=== PATIENT | male | born 1950 | race Caucasian/White ===

== ENCOUNTER → 2018-04-12 | Day surgery (SDC) | payer MEDICARE ==
[2018-04-11 14:07] LABS: BASOPHILS % 0.3 % (0.0-1.0); EOSINOPHILS # (AUTO) 0.5 (0.0-0.4); EOSINOPHILS % 4.7 % (0.0-6.0); HEMATOCRIT 44.5 % (38.2-49.6); HEMOGLOBIN 14.3 g/dL (14.0-18.0); LYMPHOCYTES # (AUTO) 2.7 (1.0-3.2); LYMPHOCYTES % 25.6 % (18.0-39.1); MEAN CORPUSCULAR HEMOGLOBIN 28.5 pg (28-32); MEAN CORPUSCULAR HGB CONC 32.1 g/dL (31-35); MEAN CORPUSCULAR VOLUME 88.6 fL (81-99); MONOCYTES # (AUTO) 0.6 (0.2-0.8); MONOCYTES % 5.9 % (4.4-11.3); NEUTROPHILS # (AUTO) 6.8 (2.1-6.9); NEUTROPHILS % 63.3 % (38.7-80.0); PLATELET COUNT 215 x10e3/uL (140-360); RED BLOOD COUNT 5.02 x10e6/uL (4.3-5.7); RED CELL DISTRIBUTION WIDTH 14.8 % (11.7-14.4)
[2018-04-11 14:15] LABS: ALANINE AMINOTRANSFERASE 16 IU/L (0-55); ALBUMIN 3.7 g/dL (3.5-5.0); ALBUMIN/GLOBULIN RATIO 1.3 (0.8-2.0); ALKALINE PHOSPHATASE 66 IU/L (40-150); ANION GAP 17.7 mmol/L (8-16); BLOOD UREA NITROGEN 16 mg/dL (7-26); BUN/CREATININE RATIO 14 (6-25); CALCIUM 9.6 mg/dL (8.4-10.2); CARBON DIOXIDE 26 mmol/L (22-29); CHLORIDE 106 mmol/L (98-107); CHOL/HDL RATIO 3.1 (3.9-4.7); CHOLESTEROL 152 MD/DL (0-199); CREATININE, SERUM 1.14 mg/dL (0.72-1.25); EST GLOMERULAR FILTRATION RATE > 60 ML/MIN (60-); GLUCOSE 88 mg/dL (74-118); HDL CHOLESTEROL 49 MG/DL (40-60); LDL CHOLESTEROL 56 MG/DL (60-130); POTASSIUM 4.7 mmol/L (3.5-5.1); SODIUM 145 mmol/L (136-145); TRIGLYCERIDES 233 MG/DL (0-149)
[~2018-04-12] VITALS: Ht 170.2 cm; Wt 84.4 kg
[~2018-04-12] MED LIST: ALBUTEROL0.63 MG/3 HHN; ALPRAZOLAM 0.5 MG TAB ONE; AMITIZA24 MCG PO; AMLODIPINE BESY10 MG PO; ASPIRIN 325 MG TAB ONE; ASPIRIN EC81 MG PO; BACLOFEN10 MG PO; COMBIVENT RESPIM4 GM IH; DIPHENHYDRAMINE HCL 25 MG CAP ONE; FENTANYL CITRATE/PF 100MCG/2 ML INJ ONE; GABAPENTIN300 MG PO; HEPARIN SOD (PORCINE) 1000 UNIT/ML 30ML ONE; HEPARIN SOD/SOD CHLORIDE 2,000 ML ONE; IOPAMIDOL 300MG/ML 100 ML INFUS..BTL IV ONE; LIDOCAINE HCL 2% LOCAL 20 ML VIAL ONE; MIDAZOLAM HCL 2 MG/2 ML VIAL ONE; MONTELUKAST SOD10 MG PO; NITROGLYCERIN/D5W 200 MCG/ML 250 ML ONE; NORCO 10-325 T1 EACH PO; PRASUGREL 10 MG TAB ONE; PROTAMINE SULFATE 10 MG/ML 5 ML VIAL ONE; SIMVASTATIN20 MG PO; SODIUM CHLORIDE 0.9% 100 ML 100 ML ONE; SODIUM CHLORIDE 0.9% 1000ML 1,000 ML ONE; TAMSULOSIN HCL0.4 MG PO; VERAPAMIL HCL 2.5 MG/ML 2 ML VIAL ONE
[2018-04-12 11:43] VITALS: BP 138/75
[2018-04-12 14:15] VITALS: BP 104/84
[2018-04-12 14:31] VITALS: BP 115/93
[2018-04-12 14:45] VITALS: BP 95/74
--- NOTE | 2018-04-12 14:55 | Operative Report ---
DATE OF PROCEDURE: April 12, 2018 INDICATION: Claudication. PROCEDURES PERFORMED 1. Abdominal aortogram. 2. Bilateral lower extremity angiograms. 3. Selective placement of catheter from the left femoral artery to the right superficial femoral artery. 4. Additional 3rd-order catheter placement from the left femoral artery to the right posterior tibial artery. 5. Atherectomy, angioplasty and stent placement of the right superficial femoral artery. 6. Secondary thrombectomy of the right superficial femoral artery. 7. Atherectomy and angioplasty of the right posterior tibial artery. 8. Deployment of left groin Perclose. COMPLICATIONS: None. RECOMMENDATIONS: Staged intervention on the left superficial femoral artery focal stenosis. Access was obtained in the left femoral artery. Abdominal aortogram was performed demonstrating no disease in the abdominal aorta and iliacs. However, iliacs were tortuous. The right femoral artery proximally is patent. Distal vessel could not be seen. The catheter was then advanced from the left femoral artery to the right superficial femoral artery confirming 90% stenosis of the mid right superficial femoral artery. The popliteal artery is patent. The infrapopliteal vessels are not well seen. The catheter was advanced from the left femoral artery to the right posterior tibial artery confirming 3-vessel runoff. However, the ostial right posterior tibial artery had 90% stenosis. Left femoral artery had 70% mid-femoral artery stenosis. A decision was made to intervene on the right femoral artery. The patient received 10,000 units of intravenous heparin and oral Effient for anticoagulation. The sheath was exchanged, and the lesion was crossed using a Glidewire. The wire was exchanged to a ViperWire. Orbital atherectomy of the posterior tibial and femoral artery was performed. Femoral artery atherectomy resulted in large amounts of visible thrombus for which manual aspiration and secondary thrombectomy were needed. Balloon angioplasty of the posterior tibial with a 4 x 40 mm Lutonix drug-coated balloon with excellent end result, and drug-coated balloon angioplasty with 6 mm in the femoral artery resulted in flow-limiting dissection. A 7 x 40 mm LifeStent was deployed, post stent with a 6-mm balloon. Excellent end result, less than 10% residual stenosis and 3-vessel runoff to the right foot. Left groin repaired using Perclose. Patient discharged home the same day. Job#: [id number]
[2018-04-12 15:00] VITALS: BP 109/52
[2018-04-12 16:00] VITALS: BP 132/84
== END | disposition home or self-care (01) ==
LOC: CATH LAB 11:16 → EDBD 13:00 → EDSEX 13:00
PROVIDERS: ATTEND Internal Medicine Interventional Cardiology
DX: I70.208 Unspecified atherosclerosis of native arteries of extremities, other extremity (principal); I20.8 Other forms of angina pectoris; J44.9 Chronic obstructive pulmonary disease, unspecified; I10 Essential (primary) hypertension; E78.00 Pure hypercholesterolemia, unspecified; Z01.812 Encounter for preprocedural laboratory examination; Z79.82 Long term (current) use of aspirin; Z82.49 Family history of ischemic heart disease and other diseases of the circulatory system
CPT/HCPCS: 36415; 37186; 37227; 37229; 75625; 80053; 80061; 85025; C1724; C1725 ×3; C1769 ×2; C1876; C1887; J1644; J2001; J2250; J2720; J7030; Q9967; 75716

== ENCOUNTER → 2018-05-15 | Day surgery (SDC) | payer MEDICARE ==
[2018-05-14 12:24] LABS: INR 0.79; PROTHROMBIN TIME 11.7 seconds (11.9-14.5)
[2018-05-14 12:32] LABS: ALBUMIN 3.9 g/dL (3.5-5.0); ALBUMIN/GLOBULIN RATIO 1.6 (0.8-2.0); ANION GAP 14.6 mmol/L (8-16); CALCIUM 9.8 mg/dL (8.4-10.2); CREATININE, SERUM 1.26 mg/dL (0.72-1.25); POTASSIUM 4.6 mmol/L (3.5-5.1)
[2018-05-15] VITALS (14 sets, daily range): BP systolic 90–133; BP diastolic 50–94
[~2018-05-15] VITALS: Ht 170.2 cm; Wt 82.6 kg
[~2018-05-15] MED LIST changes: -ALPRAZOLAM 0.5 MG TAB ONE; -ASPIRIN 325 MG TAB ONE; +CLOPIDOGREL75 MG PO; -DIPHENHYDRAMINE HCL 25 MG CAP ONE; -IOPAMIDOL 300MG/ML 100 ML INFUS..BTL IV ONE; +IOPAMIDOL 370 MG/ML 200 ML INFUS..BTL INJ ONE; +LISINOPRIL10 MG PO; -PRASUGREL 10 MG TAB ONE; -PROTAMINE SULFATE 10 MG/ML 5 ML VIAL ONE; -SODIUM CHLORIDE 0.9% 100 ML 100 ML ONE
--- NOTE | 2018-05-16 20:35 | Operative Report ---
DATE OF PROCEDURE: May 15, 2018 INDICATIONS: Coronary artery disease, abnormal stress test. PROCEDURES PERFORMED 1. Left heart catheterization, selective coronary angiography, left ventriculography. 2. Deployment of right wrist transradial band. COMPLICATIONS: None. RECOMMENDATIONS: Medical therapy. Access was obtained in the right radial artery. A 5-Romansh sheath was placed. Diagnostic coronary angiogram revealed mild coronary artery disease, 10 to 20%. Diffuse luminal irregularities in all coronary vessels. No critical stenosis or occlusions. LV ejection fraction was 60%. LV end-diastolic pressure was 12. No gradient across the aortic valve on pullback. Right wrist TR band applied. Patient discharged home the same day. Job#: [id number]
== END | disposition home or self-care (01) ==
LOC: CATH LAB 06:38
PROVIDERS: ATTEND Internal Medicine Interventional Cardiology
DX: I25.118 Atherosclerotic heart disease of native coronary artery with other forms of angina pectoris (principal); R94.39 Abnormal result of other cardiovascular function study; I73.9 Peripheral vascular disease, unspecified; I10 Essential (primary) hypertension; E78.00 Pure hypercholesterolemia, unspecified; J44.9 Chronic obstructive pulmonary disease, unspecified; Z01.812 Encounter for preprocedural laboratory examination; Z79.82 Long term (current) use of aspirin; Z82.49 Family history of ischemic heart disease and other diseases of the circulatory system
CPT/HCPCS: 36415; 80053; 85610; 93458; C1887; J1644; J2001; J2250; J7030; Q9967

== ENCOUNTER → 2018-06-05 | Day surgery (SDC) | payer MEDICARE ==
[2018-06-04 12:57] LABS: ALBUMIN 3.7 g/dL (3.5-5.0); ALBUMIN/GLOBULIN RATIO 1.4 (0.8-2.0); ANION GAP 13.9 mmol/L (8-16); CALCIUM 9.7 mg/dL (8.4-10.2); CREATININE, SERUM 1.22 mg/dL (0.72-1.25); POTASSIUM 4.9 mmol/L (3.5-5.1)
[2018-06-04 13:05] LABS: INR 0.84; PROTHROMBIN TIME 12.3 seconds (11.9-14.5)
[~2018-06-05] VITALS: Ht 170.2 cm; Wt 82.6 kg
[~2018-06-05] MED LIST changes: +IOPAMIDOL 300MG/ML 100 ML INFUS..BTL IV ONE; -IOPAMIDOL 370 MG/ML 200 ML INFUS..BTL INJ ONE; +LIDOCAINE HCL 1% LOCAL INJ 20 ML VIAL ONE; -LIDOCAINE HCL 2% LOCAL 20 ML VIAL ONE; +ZETIA10 MG PO
[2018-06-05 07:13] VITALS: BP 108/71
[2018-06-05 09:25] VITALS: BP 97/77
[2018-06-05 09:30] VITALS: BP 87/77
[2018-06-05 09:45] VITALS: BP 108/77
[2018-06-05 10:00] VITALS: BP 102/79
--- NOTE | 2018-06-05 10:17 | Operative Report ---
DATE OF PROCEDURE: June 05, 2018 INDICATIONS: Peripheral arterial disease and claudication. PROCEDURES PERFORMED 1. Third-order catheter placement from the right femoral artery to the left superficial femoral artery. 2. Additional 3rd-order catheter placement from the right femoral artery to the left anterior tibial artery. 3. Atherectomy and drug-coated balloon angioplasty of the left superficial femoral artery. 4. Secondary thrombectomy of the left superficial femoral artery. 5. Deployment of right groin Perclose closure device. COMPLICATIONS: None. BLOOD LOSS: 5 mL. RECOMMENDATIONS: Dual antiplatelet therapy. Access was obtained in the right femoral artery. The sheath was extended into the left common femoral artery. There were 80% stenoses of proximal and distal femoral artery noted. The lesions were crossed using a Glidewire. The wire was exchanged to a ViperWire. Orbital atherectomy was performed. Large amounts of visible thrombus were generated for which manual aspiration and secondary thrombectomy were needed. Balloon angioplasty with 6-mm drug-coated balloons resulted in excellent 3-vessel runoff with less than 10% residual stenosis. Right groin repaired using Perclose. Patient discharged home the same day. Job#: [id number]
== END | disposition home or self-care (01) ==
LOC: CATH LAB 06:15
PROVIDERS: ATTEND Internal Medicine Interventional Cardiology
DX: I70.212 Atherosclerosis of native arteries of extremities with intermittent claudication, left leg (principal); I10 Essential (primary) hypertension; I20.8 Other forms of angina pectoris; J44.9 Chronic obstructive pulmonary disease, unspecified; E78.00 Pure hypercholesterolemia, unspecified; Z01.812 Encounter for preprocedural laboratory examination; Z79.02 Long term (current) use of antithrombotics/antiplatelets; Z79.82 Long term (current) use of aspirin
CPT/HCPCS: 36247; 36415; 37186; 37225; 80053; 85610; C1724; C1725 ×2; C1769 ×2; C1887; J1644; J2001; J2250; J7030; Q9967; 37224

== ENCOUNTER 2019-03-13 12:42 | Emergency (ER) | payer SELFPAY ==
[~2019-03-13] VITALS: Ht 170.2 cm; Wt 82.6 kg
[~2019-03-13 12:42] MED LIST changes: -FENTANYL CITRATE/PF 100MCG/2 ML INJ ONE; -HEPARIN SOD (PORCINE) 1000 UNIT/ML 30ML ONE; -HEPARIN SOD/SOD CHLORIDE 2,000 ML ONE; -IOPAMIDOL 300MG/ML 100 ML INFUS..BTL IV ONE; -LIDOCAINE HCL 1% LOCAL INJ 20 ML VIAL ONE; -MIDAZOLAM HCL 2 MG/2 ML VIAL ONE; -NITROGLYCERIN/D5W 200 MCG/ML 250 ML ONE; -SODIUM CHLORIDE 0.9% 1000ML 1,000 ML ONE; -VERAPAMIL HCL 2.5 MG/ML 2 ML VIAL ONE
[2019-03-13] MEDS ORDERED: ACETAMINOPHEN 325 MG TAB PO ONE (14:15)
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
[2019-03-13] MEDS ORDERED: TETANUS/DIPHTHERIA TOX ADULT 0.5 ML SYR IM ONE (15:15)
[2019-03-13 18:14] VITALS: BP 132/62
== END 2019-03-13 17:30 | disposition home or self-care (01) ==
LOC: ER 12:42
DX: S00.83XA Contusion of other part of head, initial encounter (principal); M54.2 Cervicalgia; S16.1XXA Strain of muscle, fascia and tendon at neck level, initial encounter; V53.5XXA Driver of pick-up truck or van injured in collision with car, pick-up truck or van in traffic accident, initial encounter; Y92.488 Other paved roadways as the place of occurrence of the external cause; I10 Essential (primary) hypertension; E78.5 Hyperlipidemia, unspecified; J44.9 Chronic obstructive pulmonary disease, unspecified; K21.9 Gastro-esophageal reflux disease without esophagitis; Z85.72 Personal history of non-Hodgkin lymphomas
CPT/HCPCS: 70450; 72125; 99283